=== PATIENT | male | born 1975 ===

== ENCOUNTER 2017-08-02 06:19 | Day surgery (SDC) | payer OTHER ==
[2017-08-02 06:20] VITALS: BMI 26.6
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
[2017-08-02 07:55] LABS: BASO # 0.1 K/uL (0.0-0.2); EOS # 0.5 K/uL (0.0-0.7); EOS % 8.1 % (0.0-4.0); HEMATOCRIT 43.1 % (35.0-51.0); LYMPH # 3.2 K/uL (1.0-4.3); MEAN CELL VOLUME 89.3 fl (80.0-94.0); MEAN CORPUSCULAR HEMOGLOBIN 30.3 pg (27.0-31.0); MEAN CORPUSCULAR HGB CONC 33.9 g/dL (33.0-37.0); MEAN PLATELET VOLUME 8.1 fl (7.2-11.7); MONO # 0.8 K/uL (0.0-0.8); MONO % 13.5 % (0.0-10.0); NEUT # 1.5 K/uL (1.8-7.0); NEUT % 24.4 % (50.0-75.0); NRBC % 0.1 % (0.0-0.0); RED CELL DISTRIBUTION WIDTH 13.2 % (11.5-14.5)
[2017-08-02 08:02] LABS: ALB/GLOB RATIO 1.4 (1.0-2.1); ALKALINE PHOSPHATASE 66 U/L (38-126); ALT/SGPT 52 U/L (21-72); AST/SGOT 28 U/L (17-59); BILIRUBIN,TOTAL 0.6 mg/dl (0.2-1.3); BLOOD UREA NITROGEN 12 mg/dl (9-20); CALCIUM 9.1 mg/dL (8.4-10.2); CARBON DIOXIDE 23 mmol/L (22-30); CHLORIDE 107 mmol/L (98-107); GFR AFRICAN-AMERICAN > 60; GLUCOSE,RANDOM 92 mg/dL (75-110); SODIUM 142 mmol/l (132-148); TOTAL PROTEIN 7.6 G/DL (6.3-8.2)
[2017-08-02] MEDS ORDERED: SENSORCAINE 0.5% W/EPINEPHRINE 50ML MDV IJ ONE (09:26)
[2017-08-02] MEDS ORDERED: Lidocaine 4% (Laryng-O-Jet) Kit MM ONE (09:44)
[2017-08-02] MEDS ORDERED: Midazolam 2 MG/2 ML VIAL ONE (09:44)
[2017-08-02] MEDS ORDERED: Propofol 10 mg/ml Inj (20 ML) ONE ×2 (09:44→13:33)
[2017-08-02] MEDS ORDERED: Lidocaine 1% Inj (20ml) ONE (10:16)
[2017-08-02] MEDS ORDERED: ceFAZolin IV 1 gm in Dextrose 2 GM/100 ML BAG IVPB ONE (10:17)
[2017-08-02] MEDS ORDERED: Lactated Ringer's 1,000 ML IV ONE (10:40)
[2017-08-02] MEDS ORDERED: ePHEDrine 50 mg/ml Inj ONE (11:10)
--- NOTE | 2017-08-02 11:28 | RAD ---
HISTORY: shoulder injury' COMPARISON: No prior. FINDINGS: LUNGS: The lungs are clear. PLEURA: No significant pleural effusion identified, no pneumothorax apparent. CARDIOVASCULAR: Normal. OSSEOUS STRUCTURES: No significant abnormalities. VISUALIZED UPPER ABDOMEN: Normal. OTHER FINDINGS: None. IMPRESSION: No active pulmonary disease.
[2017-08-02] MEDS ORDERED: Lidocaine 1% Inj (20ml) IJ ONE (11:45)
--- NOTE | 2017-08-02 14:08 | PCM.ANESB1 ---
Interscalene Block - Brachial Plexus Date of Procedure: 08/02/17 Anesthesiologist: Francisco Javier Pre-Procedure Diagnosis: Right shoulder arthroscopy Post-Procedure Diagnosis: Same Procedure Performed: Interscalene Block of Brachial Plexus Right - Procedure Interscalene Block of Brachial Plexus: This procedure was explained to the patient that it is for post-operative pain management. Consent was obtained after a thorough discussion with the patient regarding the benefits and possible complications of local anesthetic block of the Brachial Plexus at the Interscalene area. The patient was brought to the Operating Room and standard monitors were applied. Time out was held with the circulating nurse to confirm the correct surgery and appropriate block. After applying Oxygen by nasal cannula and administering IV Sedation, the patient's head was gently rotated away from the __right___operative shoulder and the anterior scalene groove was carefully palpated. The ultrasound transducer was then applied to the skin in the transverse plane and the brachial plexus was visualized lateral to the carotid artery and in between the anterior and middle scalene muscles. After identification,the anterior lateral portion of the neck was prepped with Betadine solution three times and Lidocaine 1% was injected subcutaneously for topical analgesia. At this point, a # 22 gauge Stimuplex 2 inches insulated needle was inserted into the interscalene groove and directed in a caudal and midline direction. The needle was inserted lateral to the ultrasound transducer in-plane towards the brachial plexus in a [id number] direction. Needle advancement was performed carefully under direct ultrasound visualization. Nerve stimulator was used and twitched of the affected extremity including the hand brachialis muscles, biceps and the deltoid was obtained at a current of ___0.4__MA. After repeated negative aspiration,___25__cc of__.5%___,___Bupivacaine were injected. Under ultrasound guidance the local anesthetics were observed surrounding the roots of the brachial plexus. The needle was removed intact and sterile dressing was applied. The patient had stable vital signs, was conscious and in no apparent distress. The patient tolerated the interscalene block of the bracheal plexus well with stable vital signs and was prepared for subsequent surgery.
[2017-08-02] MEDS ORDERED: HYDROmorphone 0.5 mg/0.5 ml ISec IVP PRN (14:09)
[2017-08-02] MEDS ORDERED: Dexamethasone 4 mg/1 ml IVP PRN (14:09)
--- NOTE | 2017-08-02 14:17 | PCM.SURG1 ---
Surgeon's Initial Post Op Note - Surgeon's Notes Surgeon: Marni Gregory MD Packing Line Operator: Dima Cummings MD; Ayanna Whiting PA-C Type of Anesthesia: General Endo, Other (Interscalene block ) Pre-Operative Diagnosis: Right shoulder AC Separation Operative Findings: see op report Post-Operative Diagnosis: same as pre-op dx Operation Performed: Right shoulder arthroscopy, CC ligament reconstruction, subacromial decompression, distal clavulectomy, extensive debriedement Specimen/Specimens Removed: none Estimated Blood Loss: EBL {In ML}: 10 Date of Surgery/Procedure: 08/02/17 Time of Surgery/Procedure: 11:00
[2017-08-02] MEDS ORDERED: Oxycodone/Acetaminophen 5/325 mg Tab PO PRN (14:20)
--- NOTE | 2017-08-02 15:05 | RAD ---
PROCEDURE: CHEST RADIOGRAPH, 1 VIEW HISTORY: Post-op COMPARISON: 08/02/2017 FINDINGS: LUNGS: There are low lung volumes. There is right lower lobe airspace disease. PLEURA: No pneumothorax. There is blunting of the right costophrenic angle. No large left pleural effusion. CARDIOVASCULAR: Normal. OSSEOUS STRUCTURES: No significant abnormalities. VISUALIZED UPPER ABDOMEN: Normal. OTHER FINDINGS: None. IMPRESSION: Question of right lower lobe atelectasis/pneumonia and small right pleural effusion. Low lung volumes may be related to poor inspiratory effort. Dedicated PA and lateral radiographs are recommended for definitive evaluation.
--- NOTE | 2017-08-02 16:01 | RAD ---
PROCEDURE: Radiographs of the Right Shoulder HISTORY: s/p right shoulder arthroscopy, cc ligament recon COMPARISON: No prior. FINDINGS: BONES: No acute fracture or destructive bony lesion identified. An apparent anchoring device seen related the distal right clavicle. The acromioclavicular joint appears widened to 11 mm. Clinically correlate further. Clinical joint appears unremarkable. Soft tissue postop changes seen cephalad to the distal clavicle. OTHER FINDINGS: None. IMPRESSION: Postop changes seen related the distal left clavicle and local soft tissues. Widening of the acromioclavicular joint is appreciated. No prior comparison available. Clinically correlate further.
[2017-08-02 16:15] VITALS: RESP 18
--- NOTE | 2017-08-02 16:21 | CON ---
CHIEF COMPLAINT: Right shoulder injury and pain. HISTORY OF PRESENT ILLNESS: The patient is a 42-year-old male who had a fall on to his right shoulder a few months ago. The patient reported an immediate deformity. The patient had initially sought treatment and I had recommended operative versus nonoperative. The patient presented to the ER today with progressive acute right shoulder pain that had not improved with taking increasing amounts of antiinflammatory medication and home stretching and strengthening exercises. The patient's current symptoms include inability to move the arm secondary to pain, worsening of deformity of the right shoulder and weakness in his lean consultant and has difficulty performing activities of daily living and has difficulty sitting on the right side. REVIEW OF SYSTEMS: Normal. PHYSICAL EXAMINATION: EXTREMITIES: Examination of the patient's right shoulder, there is any apparent tenting deformity at the AC joint with a superior migration of distal clavicle. The patient has very limited range of motion in all planes secondary to pain. The rest of the exam is limited secondary to pain. Neurovascularly intact distally. IMAGING: X-rays of the patient's right shoulder showing type 5 AC joint dislocation. ASSESSMENT: A 42-year-old male with [id number] worsening of right shoulder type 5 AC joint dislocation. TREATMENT AND PLAN: I had a detailed discussion with the patient reviewing his history, physical exam and imaging findings. I explained to the patient that due to the acute nature of the injury, I am recommending a right shoulder arthroscopy and open CC ligament reconstruction versus arthroscopic assisted. I reviewed the risks and benefits of the surgery with the patient in detail. The risks include but are not limited to bleeding, infection, nerve vessel damage, continued pain, failure of graft, dislocation, iatrogenic fractures of the coracoid or the clavicle, need for further treatment, worsening of symptoms, blood clot and even . The patient fully understands the risks and benefits and would like to proceed as soon as possible. The patient will remain n.p.o. and will send to the OR for later on this afternoon. Marni Gregory MD
[2017-08-02 16:50] VITALS: BP 130/68; PULSE 97; TEMP 97.6
--- NOTE | 2017-08-03 08:37 | OP ---
ATTENDING PHYSICIAN: Marni Gregory MD ORGANIC PREPARATION ANALYST: Dima Cummings MD PREOPERATIVE DIAGNOSES: 1. Right shoulder acute type 5 acromioclavicular joint dislocation. 2. Synovitis. 3. Biceps tenosynovitis. POSTOPERATIVE DIAGNOSES: 1. 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 2. Extensive synovitis. 3. Partial supraspinatus tear. 4. Type 1 SLAP tear. 5. Anterior capsular adhesions. 6. Impingement. 7. Subacromial bursitis. 8. Acromioclavicular joint arthritis. ANESTHESIA: General interscalene block. PROCEDURE: 1. Right shoulder arthroscopic assisted coracoclavicular ligaments reconstruction using allograft. 2. Complete synovectomy. 3. Extensive debridement. 4. Anterior capsular lysis of adhesions. 5. Arthroscopic distal clavicle excision. 6. Arthroscopic subacromial decompression with acromioplasty. EBL: 5 mL. SPECIMENS: None. CLOSURE: Primary. FLUIDS: See anesthesia sheet. ANTIBIOTICS: See anesthesia sheet. COMPLICATIONS: None. INDICATIONS: After failing a course of nonoperative therapy, the patient elected to undergo the above procedures. In the office the risks and possible complications of the shoulder arthroscopy were discussed in detail with the patient. These risks include, but are not limited to, continued pain, lack of motion, infection, vascular injury, and nerve injury including axillary nerve dysfunction, reflex sympathetic dystrophy, compartment syndrome, limb loss, and . The patient expressed an understanding of the risks and possible benefits of the procedure, and was also made aware of the alternatives to surgery. An informed consent was obtained, and was checked immediately preop. Procedure 1: The patient was correctly identified in the holding area and the right shoulder was marked with the surgeon's initials. The patient was transported to the operating room and placed in the supine position and general anesthesia and regional interscalene block anesthesia was obtained. A preoperative orthopedic examination revealed a passive range of motion of 260 degrees of forward flexion, 50 degrees of external rotation, and 120 degrees of abduction. There was a tenting deformity of the distal clavicle with superior migration. Stability examination revealed no instability. Procedure 2: The patient was then placed in a beach chair position utilizing the beach chair positioning device. The patient's head was stabilized and the indicated upper extremity was prepped and draped in the standard surgical fashion. The anatomic structures were outlined with a skin marker, and 1% lidocaine with epinephrine was injected into the posterior, anterior, and lateral portal areas. A #21-gauge spinal needle was placed in the glenohumeral joint from the posterior portal and 10 mL of sterile saline was injected into the glenohumeral joint. Return of fluid indicated correct needle placement into the joint. The needle was then withdrawn and a #11 blade was used to make a 1-cm incision at the posterior portal site. Next, the arthroscopic blunt trocar was inserted into the glenohumeral joint. A #21-gauge spinal needle was placed through the anterior rotator interval, and the anterior portal was made with a #11 blade after the spinal needle was withdrawn. A 7-mm cannula was then inserted after the skin incision was made and the arthroscopic probe was then used to examine the internal structures of the glenohumeral joint. With the shoulder in abducted and externally rotated position, the articular surface of the rotator cuff was visualized. The arthroscope and probe were then switched from posterior to anterior. The posterior labrum, posterior capsule, and biceps anchor reflection was then inspected with the arthroscope in the anterior portal position. Examination of the glenohumeral joint revealed: 1. Extensive Synovitis. 2. Partial supraspinatus tear. 3. Anterior capsular adhesions. 4. Type 1 SLAP tear. The radiofrequency device was introduced through the anterior portal and a radiofrequency anterior capsular rotator interval lysis of adhesions was performed. The anterior capsule was released to optimize range of motion. The radiofrequency device was used to provide hemostasis during this procedure. After the lysis of adhesions, passive range of motion measured 280 degrees of forward flexion, 60 degrees of external rotation, and 150 degrees of abduction. Excessive glenohumeral synovitis was cleared with a 4.0 mm full radius shaver. The hypertrophic, erythematous synovium was resected. Hemostasis was maintained with the radiofrequency device. The patient's rotator interval was exposed. Care was taken not to injure any glenohumeral ligaments. The base of the coracoid was exposed and using a 70-degree scope and accessory anterolateral portal, an 8 mm cannula was placed to reconstruct the CC ligament. A 3 cm incision was made over the distal clavicle from A to P directions. Skin dissection was taken down until the clavicle exposed. Using the Arthrex CC ligament reconstruction guide, a 3 mm drill pin was drilled at the base of the coracoid and a suture was passed and a Dog Bone Button was placed at the base of the coracoid. Next, 2 sutures were placed and passed on the posterior medial portion and the anterior lateral portion of the coracoid and an allograft, which was prepared on the back table showed 8 mm in diameter, was passed under the base of the coracoid. Next, under direct fluoroscopic guidance, the AC joint was reduced. First, the Dog Button was tied with a TightRope fashion and afterwards for anatomic fixation, the allograft was sutured onto itself after being tied in a knot. The radiographs were taken confirming adequate reduction of the CC joint with adequate placement of the graft and the Dog Bone Button. The 4.0 mm straight shaver was introduced through the anterior portal, and the type 1 SLAP lesion was debrided. Extreme care was taken to protect the chondral surfaces as well as the substance of the biceps tendon. At this point, the arthroscope was withdrawn from the glenohumeral joint and subacromial space was then entered using a blunt trocar. Gentle resistance sweeping against the coracoacromial ligament confirmed proper placement of the sheath and the arthroscope was inserted. A 1-cm incision was made at the inferolateral acromial area to create the lateral portal. Examination of the subacromial space revealed: 1. There was extensive bursitis. 2. Impingement. 3. AC joint arthritis. Visualization of the subacromial space was difficult due to excessive bursitis. A bursectomy was performed using a combination of radiofrequency device as well as a 4.0-mm full radius motorized shaver. The soft tissue on the undersurface of the acromion was debrided utilizing the 4.0-mm full radius shaver and the radiofrequency device was used for hemostasis. At this point, the coracoacromial ligament was released with the radiofrequency device and the acromial branch of the thoracoacromial artery was coagulated with the same instrument. Subacromial decompression was performed with a 4.0-mm conical sofia using both the medial portal and the "cutting-block" precision acromioplasty technique from the posterior portal. The undersurface of the acromion was resected to a flat, smooth surface to allow unrestricted excursion of the rotator cuff. After adequate subacromial decompression, attention was then turned to the acromioclavicular joint which was localized using a 21-gauge spinal needle. A single 1-cm incision was placed on the superior aspect of the acromioclavicular joint, and the arthroscope and radiofrequency device were then inserted. Utilizing the radiofrequency device for hemostasis as well as tissue ablation, the perimeter of the distal clavicle was denuded of soft tissue. Care was taken to preserve the superoposterior soft tissue ligamentous attachments to the distal clavicle. A 4.0-mm conical sofia was introduced through the superior portal and 7 mm of distal clavicle was excised. A 1 mm of medial acromion was also resected. All resected bone was planed to a smooth, flat surface, and was checked by arthroscopic visualization from the superior AC joint portal. The subacromial space was then irrigated with sterile saline, and closure was instituted with sutures. A dressing was placed consisting of Xeroform, 4x4's, ABD pads, and tape. The patient was placed in a sling with an ABD pad in the axilla. The patient was then placed in a supine position and extubated without incident. The patient was transferred to the recovery room in stable condition, having tolerated the procedure well. Postoperatively, the patient will be maintained in an abduction sling, also provided with my rehab protocol, defining the restriction and sling use for 6-8 weeks. Followup in sling for 6 weeks. During this procedure, I was assisted by Dr. Dima Cummings, who assisted in positioning the patient on the operating room table as well as transferring the patient from the operating room table to the recovery room stretcher. In addition, Dr. Dima Cummings assisted me during the actual operative procedure by positioning the patient's extremity to allow for easier arthroscopic access to all areas of the joint. The presence of Dr. Dima Cummings as my operative workforce development assistant, was medically necessary to ensure the utmost safety of the patient in the pre, intra-, and postoperative periods. Marni Gregory MD
--- NOTE | 2017-08-03 11:25 | CARD ---
APPROVED REPORT EKG Measurement Heart [id number] TN [id number] <Conclusion> Normal sinus rhythm Normal ECG
[2017-08-03 13:12] VITALS: O2SAT 98
--- NOTE | 2017-08-04 17:59 | RAD ---
PROCEDURE: Fluoroscopy up to 1 hr. HISTORY: SHOULDER COMPARISON: None TECHNIQUE: Standard protocol for this study/examination. FINDINGS: Total fluoroscopic time (continuous mode) utilized during the procedure: 5.8 seconds. Total exam DLP: (mGy): 0.46 IMPRESSION: Less than 1 hr fluoroscopic time utilized during performance of the procedure.
== END 2017-08-02 17:15 | disposition home or self-care (01) ==
LOC: H.ER 06:19 → H.SDS 08:40 → H.ERHOLD 08:40 → UNDOADMIN 08:40 → H.SDS 17:15 → UNDODISIN 17:15
PROVIDERS: ATTEND Emergency Medicine
DX: S43.084A Other dislocation of right shoulder joint, initial encounter (principal); M65.811 Other synovitis and tenosynovitis, right shoulder; M75.111 Incomplete rotator cuff tear or rupture of right shoulder, not specified as traumatic; M75.51 Bursitis of right shoulder; M13.811 Other specified arthritis, right shoulder
CPT/HCPCS: 29821; 29823; 71010; 73030; 80053; 85025; 85610; 86850; 86900; 93005; 99284; C1762; C1776; J0171; J0690; J2250; J2405; J2704; J3010; J7030; J7120